=== PATIENT | male | born 1960 | race Caucasian/White ===

== ENCOUNTER 2020-08-24 08:22 | Day surgery (SDC) | payer OTHER, SELFPAY ==
[~2020-08-24] VITALS: Ht 165.1 cm; Wt 70.8 kg
[2020-08-24] MEDS ORDERED: fentaNYL citrate 0.05 MG/ML VIAL ONE (11:12)
[2020-08-24] MEDS ORDERED: LIDOCAINE 2% 100 MG/5 ML UJET TP ONE (11:13)
[2020-08-24] MEDS ORDERED: fentaNYL citrate 0.05 MG/ML VIAL IVP ONE (13:10)
== END 2020-08-24 12:18 | disposition home or self-care (01) ==
LOC: MMU 08:22 → MDS 08:22
PROVIDERS: ATTEND Internal Medicine Gastroenterology
DX: K62.5 Hemorrhage of anus and rectum (principal); D12.3 Benign neoplasm of transverse colon; K64.8 Other hemorrhoids; K21.9 Gastro-esophageal reflux disease without esophagitis; M10.9 Gout, unspecified; Z98.890 Other specified postprocedural states; Z79.899 Other long term (current) drug therapy; Z20.828 Contact with and (suspected) exposure to other viral communicable diseases
CPT/HCPCS: 45385; J3010; U0003